=== PATIENT | female | born 1975 | race African-American/Black ===

== ENCOUNTER 2023-08-14 04:56 | Day surgery (SDC) | payer OTHER ==
[2023-08-11 08:50] VITALS: BMI 27.4
[2023-08-14] MEDS ORDERED: GLYCOPYRROLATE 0.2 MG/1 ML VIAL ONE (09:10)
[2023-08-14] MEDS ORDERED: MIDAZOLAM HCL 2 MG/2 ML SINGLE DOSE VIAL ONE (09:10)
[2023-08-14] MEDS ORDERED: PROPOFOL 40 ML ONE (09:11)
[2023-08-14] MEDS ORDERED: SUCCINYLCHOLINE CHLORIDE 200 MG/10 ML SYRINGE ONE (09:15)
[2023-08-14] MEDS ORDERED: KETOROLAC TROMETHAMINE 30 MG/1 ML VIAL ONE (09:45)
[2023-08-14] MEDS ORDERED: DEXAMETHASONE SOD PHOSPHATE 4 MG/1 ML VIAL ONE (09:45)
[2023-08-14] MEDS ORDERED: ceFAZolin SODIUM 1 GM VIAL ONE (09:45)
[2023-08-14] MEDS: ceFAZolin SODIUM 1 GM VIAL IVPB ONE (09:45)
[2023-08-14] MEDS ORDERED: ONDANSETRON 4 MG/2 ML VIAL ONE ×2 (09:45→13:22)
[2023-08-14] MEDS: ACETAMINOPHEN 1000 MG/100 ML BAG IVPB ONE (10:28)
[2023-08-14] MEDS: ACETAMINOPHEN INJECTION 100 ML IVPB ONE (10:28)
[2023-08-14] MEDS ORDERED: LACTATED RINGERS SOLUTION 1,000 ML IV SCH (10:30)
[2023-08-14 12:28] VITALS: RESP 20
[2023-08-14] MEDS: ONDANSETRON 4 MG/2 ML VIAL IVPUSH PRN (13:37)
[2023-08-14 17:34] VITALS: BP 107/63; PULSE 70; TEMP 97.7
== END 2023-08-14 15:10 | disposition home or self-care (01) ==
LOC: JASU-SURG 04:56
PROVIDERS: ATTEND Obstetrics & Gynecology
PROC: 0UB98ZZ Excision of Uterus, Via Natural or Artificial Opening Endoscopic (ICD-10-PCS; principal; 2023-08-14 09:00)
DX: N92.1 Excessive and frequent menstruation with irregular cycle (principal); D25.0 Submucous leiomyoma of uterus
CPT/HCPCS: 81025; 86850; 86900; 86901; 88305-TC; 88341-TC; 88342-TC; 94760; J0131